=== PATIENT | female | born 2000 | race African-American/Black ===

== ENCOUNTER 2019-10-06 06:17 | Emergency (ER) | payer MEDICAID ==
[~2019-10-06] VITALS: Ht 167.6 cm; Wt 63.6 kg
[2019-10-06] MEDS ORDERED: BACITRACIN 15GM TUBE TOP ONE (07:30)
[2019-10-06 07:39] LABS: CLARITY URINE CLOUDY (CLEAR); COLOR URINE DARK YELLOW (YELLOW); KETONES URINE TRACE (NEGATIVE); LEUKOCYTE ESTERASE URINE 1+ (NEGATIVE); NITRITE URINE POSITIVE (NEGATIVE); OCCULT BLOOD URINE 2+ (NEGATIVE); PROTEIN URINE 2+ (NEGATIVE); SPECIFIC GRAVITY URINE 1.035 (1.005-1.030)
[2019-10-06 07:43] LABS: *AMPHETAMINES SCREEN URINE NEGATIVE (NEGATIVE); *BARBITURATES SCREEN URINE NEGATIVE (NEGATIVE); *BENZODIAZEPINES SCREEN URINE NEGATIVE (NEGATIVE); *COCAINE SCREEN URINE NEGATIVE (NEGATIVE); CANNABINOID URINE SCREEN NEGATIVE (NEGATIVE); METHADONE URINE SCREEN NEGATIVE (NEGATIVE); PHENCYCLIDINE URINE SCREEN NEGATIVE (NEGATIVE)
[2019-10-06 07:57] LABS: OPIATES URINE SCREEN NEGATIVE (NEGATIVE)
[2019-10-06 08:15] VITALS: BP 129/85
== END 2019-10-06 08:26 | disposition home or self-care (01) ==
LOC: ER 06:17
DX: S00.81XA Abrasion of other part of head, initial encounter (principal); S10.91XA Abrasion of unspecified part of neck, initial encounter; Y07.03 Male partner, perpetrator of maltreatment and neglect; Y04.2XXA Assault by strike against or bumped into by another person, initial encounter; Y93.89 Activity, other specified; Y92.89 Other specified places as the place of occurrence of the external cause; N39.0 Urinary tract infection, site not specified; R03.0 Elevated blood-pressure reading, without diagnosis of hypertension
CPT/HCPCS: 80305; 81003; 81025; 87077; 87186; 99283

== ENCOUNTER 2021-11-05 12:34 | Inpatient (IN) | payer MEDICAID ==
[~2021-11-05] VITALS: Ht 157.5 cm; Wt 91.2 kg
[2021-11-05] MEDS ORDERED: LIDOCAINE HCL 1% 20ML VIAL (Pyxis) INJ INFIL SCH (14:15)
[2021-11-05] MEDS ORDERED: METHYLERGONOVINE MALEATE 0.2 MG/ML IM PRN (14:15)
[2021-11-05] MEDS ORDERED: NALOXONE HCL 0.4 MG/ML 1ML VIAL IM PRN (14:15)
[2021-11-05] MEDS ORDERED: OXYTOCIN 30 UNITS/500ML NS PMX 500 ML IV SCH (14:15)
[2021-11-05] MEDS: MAGNESIUM 20 G PREMIX (L & D) 500 ML IV SCH ×2 (14:40→23:33)
[2021-11-05] MEDS: LACTATED RINGERS 1,000 ML IV SCH ×2 (14:45→21:37)
[2021-11-05 14:47] LABS: CLARITY URINE CLEAR (CLEAR); COLOR URINE YELLOW (YELLOW); KETONES URINE NEGATIVE (NEGATIVE); LEUKOCYTE ESTERASE URINE TRACE (NEGATIVE); NITRITE URINE NEGATIVE (NEGATIVE); OCCULT BLOOD URINE NEGATIVE (NEGATIVE); PROTEIN URINE 2+ (NEGATIVE); SPECIFIC GRAVITY URINE 1.019 (1.005-1.030)
[2021-11-05 14:47] LABS: BASOPHILS % 0.4 % (0.0-2.0); EOSINOPHILS % 1.1 % (0.0-5.0); HEMATOCRIT. 31.8 % (36.0-48.0); HEMOGLOBIN. 9.9 g/dL (12.0-16.0); LYMPHOCYTES % 22.8 % (20.0-50.0); MEAN CORPUSCULAR HEMOGLOBIN 23.9 pg (28.0-32.0); MEAN CORPUSCULAR VOLUME 76.7 fL (81.0-99.0); MONOCYTES % 12.7 % (2.0-8.0); PLATELET 327 x1000/uL (130-400); RED BLOOD CELL COUNT 4.15 mill/uL (4.2-5.4); RED CELL DISTRIBUTION WIDTH 21.4 % (11.6-14.6)
[2021-11-05 14:57] LABS: CHLORIDE 103 mEq/L (98-107)
[2021-11-05] MEDS ORDERED: PENICILLIN G POTASSIUM 5 MMU in DEXT 5% WATER 100 ML IV NR (15:00)
[2021-11-05 15:20] LABS: *AMPHETAMINES SCREEN URINE NEGATIVE (NEGATIVE); *BARBITURATES SCREEN URINE NEGATIVE (NEGATIVE); *BENZODIAZEPINES SCREEN URINE NEGATIVE (NEGATIVE); *COCAINE SCREEN URINE NEGATIVE (NEGATIVE); CANNABINOID URINE SCREEN NEGATIVE (NEGATIVE); METHADONE URINE SCREEN NEGATIVE (NEGATIVE); OPIATES URINE SCREEN NEGATIVE (NEGATIVE); PHENCYCLIDINE URINE SCREEN NEGATIVE (NEGATIVE)
[2021-11-05 15:23] LABS: HEPATITIS B SURFACE ANTIGEN NEGATIVE
[2021-11-05] MEDS: BUTORPHANOL TARTRATE 2 MG/ML VIAL IV PRN ×2 (18:22→23:14)
[2021-11-05] MEDS: PENICILLIN G POTASSIUM 2.5 MMU in DEXTROSE 5% WATER 50 ML IV SCH ×2 (18:58→23:05)
[2021-11-05 19:02] LABS: INR 0.9; PARTIAL THROMBOPLASTIN TIME 25.4 sec (23.4-31.0); PROTHROMBIN TIME 9.6 sec (9.6-11.0)
[2021-11-06] MEDS: PENICILLIN G POTASSIUM 2.5 MMU in DEXTROSE 5% WATER 50 ML IV SCH ×5 (03:08→20:00)
[2021-11-06] MEDS: BUTORPHANOL TARTRATE 2 MG/ML VIAL IV PRN (03:22)
[2021-11-06] MEDS ORDERED: ROPIVACAINE HCL/PF EPIDURAL 200 ML EPI NR (11:30)
[2021-11-06] MEDS ORDERED: ROPIVACAINE HCL/PF EPIDURAL 200 ML EPI ONE (11:53)
[2021-11-06] MEDS: MAGNESIUM 20 G PREMIX (L & D) 500 ML IV SCH (12:09)
[2021-11-06] MEDS: LACTATED RINGERS 1,000 ML IV SCH (14:52)
[2021-11-07] MEDS ORDERED: PENICILLIN G POTASSIUM 2.5 MMU in DEXTROSE 5% WATER 50 ML IV SCH ×2
[2021-11-07] MEDS ORDERED: CEFAZOLIN SODIUM 1000MG/VIAL ONE (01:47)
[2021-11-07] MEDS ORDERED: ONDANSETRON HCL 4MG/2ML INJ ONE (01:47)
[2021-11-07] MEDS ORDERED: OXYTOCIN 10 UNITS/ML 1ML ONE (01:47)
[2021-11-07] MEDS ORDERED: DEXAMETHASONE 4MG/ML 1ML VIAL ONE (01:47)
[2021-11-07] MEDS ORDERED: KETOROLAC 60MG/2ML VIAL IM ONE (01:48)
[2021-11-07] MEDS ORDERED: MORPHINE SULFATE/PF 1MG/ML 10ML AMP ONE (01:48)
[2021-11-07] MEDS ORDERED: STERILE WATER FOR INJECTION 10ML VIAL ONE (01:49)
[2021-11-07] MEDS ORDERED: PHENYLEPHRINE HCL 10 MG/ML 1ML (IV VIAL) IV ONE (01:50)
[2021-11-07] MEDS ORDERED: EPHEDRINE SULFATE 50MG/ML VIAL ONE (01:50)
[2021-11-07] MEDS ORDERED: LIDOCAINE HCL 2%/EPINEPHRINE 1:100,000 20 ML VIAL INFIL ONE (01:51)
[2021-11-07] MEDS ORDERED: SODIUM BICARBONATE 4% (2.4MEQ) 5ML VIAL IV ONE (01:52)
[2021-11-07] MEDS ORDERED: CITRIC ACID/SODIUM CITRATE SOLN 30ML UDC PO NR (02:45)
[2021-11-07] MEDS ORDERED: NALOXONE HCL 0.4 MG/ML 1ML VIAL IV PRN (03:30)
[2021-11-07] MEDS ORDERED: KETOROLAC 30MG/ML VIAL IV SCH (03:30)
[2021-11-07] MEDS ORDERED: BISACODYL 10MG SUPP PR PRN (05:30)
[2021-11-07] MEDS ORDERED: IBUPROFEN 400MG TABLET PO PRN (05:30)
[2021-11-07] MEDS ORDERED: HEMORRHOIDAL SUPP PR PRN (05:30)
[2021-11-07] MEDS ORDERED: DIPHENHYDRAMINE 25MG CAPSULE PO PRN (05:30)
[2021-11-07] MEDS ORDERED: ONDANSETRON HCL 4MG/2ML INJ IV PRN (05:30)
[2021-11-07] MEDS ORDERED: MAGNESIUM 20 G PREMIX (L & D) 500 ML IV SCH ×2 (05:30→06:30)
[2021-11-07] MEDS ORDERED: ACETAMINOPHEN WITH CODEINE 300/30MG TABLET PO PRN (05:30)
[2021-11-07] MEDS ORDERED: OXYTOCIN 30 UNITS/500ML NS PMX 500 ML IV SCH (05:30)
[2021-11-07] MEDS ORDERED: RHO(D) IMMUNE GLOBULIN 300 MCG/SYR IM PRN (05:30)
[2021-11-07] MEDS ORDERED: LANOLIN OINT 7GM TUBE TOP PRN (05:30)
[2021-11-07 06:30] VITALS: BP 105/65
[2021-11-07 07:00] VITALS: BP 117/81
[2021-11-07] MEDS: MAGNESIUM/ALUMINUM HYDROXIDE/SIMETHICONE 30ML UDC PO SCH ×4 (07:30→20:56)
[2021-11-07 08:00] VITALS: BP 109/63
[2021-11-07] MEDS: SIMETHICONE 80MG TABLET CHEW PO SCH ×4 (08:00→20:56)
[2021-11-07] MEDS: PRENATAL VIT/FE FUMARATE/FA TABLET PO SCH (09:00)
[2021-11-07 12:00] VITALS: BP 98/51
[2021-11-07] MEDS: KETOROLAC 30MG/ML VIAL IM SCH (18:02)
[2021-11-07 18:55] VITALS: BP 104/41
[2021-11-07] MEDS: DOCUSATE SODIUM 100MG CAPSULE PO SCH (20:56)
[2021-11-07 22:28] VITALS: BP 105/50
[2021-11-08] MEDS: KETOROLAC 30MG/ML VIAL IM SCH (00:26)
[2021-11-08 06:34] VITALS: BP 110/69
[2021-11-08 08:00] VITALS: BP 122/74
[2021-11-08] MEDS: MAGNESIUM/ALUMINUM HYDROXIDE/SIMETHICONE 30ML UDC PO SCH ×4 (09:02→23:40)
[2021-11-08] MEDS: PRENATAL VIT/FE FUMARATE/FA TABLET PO SCH (09:03)
[2021-11-08] MEDS: SIMETHICONE 80MG TABLET CHEW PO SCH ×4 (09:03→23:41)
[2021-11-08] MEDS: IBUPROFEN 800MG TABLET PO PRN ×3 (09:03→22:50)
[2021-11-08] MEDS: FERROUS SULFATE 325MG TABLET PO SCH ×3 (09:03→17:08)
[2021-11-08 09:39] LABS: BASOPHILS % 0.1 % (0.0-2.0); EOSINOPHILS % 0.6 % (0.0-5.0); LYMPHOCYTES % 16.9 % (20.0-50.0); MEAN CORPUSCULAR HEMOGLOBIN 24.8 pg (28.0-32.0); MEAN PLATELET VOLUME 8.1 fl (7.4-10.4); MONOCYTES % 7.6 % (2.0-8.0); NEUTROPHILS % 74.8 % (40.0-76.0); PLATELET 187 x1000/uL (130-400); RED BLOOD CELL COUNT 1.98 mill/uL (4.2-5.4); RED CELL DISTRIBUTION WIDTH 22.7 % (11.6-14.6)
[2021-11-08 09:49] LABS: HEMATOCRIT. 15.4 % (36.0-48.0); HEMOGLOBIN. 4.9 g/dL (12.0-16.0)
[2021-11-08 10:25] LABS: PLATELET ESTIMATE NORMAL
[2021-11-08 16:00] VITALS: BP 134/81
[2021-11-08 18:19] LABS: BASOPHILS % 0.4 % (0.0-2.0); EOSINOPHILS % 0.6 % (0.0-5.0); LYMPHOCYTES % 17.8 % (20.0-50.0); MEAN CORPUSCULAR HEMOGLOBIN 24.8 pg (28.0-32.0); MEAN CORPUSCULAR VOLUME 77.7 fL (81.0-99.0); MEAN PLATELET VOLUME 8.6 fl (7.4-10.4); MONOCYTES % 8.5 % (2.0-8.0); NEUTROPHILS % 72.7 % (40.0-76.0); PLATELET 209 x1000/uL (130-400); RED BLOOD CELL COUNT 2.05 mill/uL (4.2-5.4)
[2021-11-08 18:38] LABS: HEMOGLOBIN. 5.1 g/dL (12.0-16.0)
[2021-11-08 20:06] VITALS: BP 123/73
[2021-11-08] MEDS: DOCUSATE SODIUM 100MG CAPSULE PO SCH (23:40)
[2021-11-09 00:14] VITALS: BP 112/68
[2021-11-09 04:19] VITALS: BP 145/83
[2021-11-09] MEDS: IBUPROFEN 800MG TABLET PO PRN ×3 (05:02→20:10)
[2021-11-09 08:00] VITALS: BP 129/86
[2021-11-09] MEDS: SIMETHICONE 80MG TABLET CHEW PO SCH ×4 (08:32→20:10)
[2021-11-09] MEDS: FERROUS SULFATE 325MG TABLET PO SCH ×3 (08:32→18:01)
[2021-11-09] MEDS: PRENATAL VIT/FE FUMARATE/FA TABLET PO SCH (08:32)
[2021-11-09] MEDS: MAGNESIUM/ALUMINUM HYDROXIDE/SIMETHICONE 30ML UDC PO SCH ×4 (08:32→20:10)
[2021-11-09 15:13] VITALS: BP 122/77
[2021-11-09 20:00] VITALS: BP 135/86
[2021-11-09] MEDS: DOCUSATE SODIUM 100MG CAPSULE PO SCH (20:10)
[2021-11-10] VITALS: BP 150/92
[2021-11-10] MEDS: IBUPROFEN 800MG TABLET PO PRN (03:13)
[2021-11-10 04:07] VITALS: BP 134/81
[2021-11-10] MEDS ORDERED: IBUP-2030 PO (06:45)
[2021-11-10] MEDS ORDERED: PREN1TAB26 MT (06:45)
[2021-11-10] MEDS ORDERED: FERR-63 PO (06:45)
[2021-11-10] MEDS: MAGNESIUM/ALUMINUM HYDROXIDE/SIMETHICONE 30ML UDC PO SCH (07:30)
[2021-11-10] MEDS: SIMETHICONE 80MG TABLET CHEW PO SCH (08:00)
[2021-11-10 08:05] VITALS: BP 142/86
[2021-11-10] MEDS: FERROUS SULFATE 325MG TABLET PO SCH (08:31)
[2021-11-10] MEDS: PRENATAL VIT/FE FUMARATE/FA TABLET PO SCH (08:31)
== END 2021-11-10 12:50 | disposition home or self-care (01) | DRG 540 ==
LOC: 8 EST LDRP 12:34 → OBSVTOIN 12:34 → 8EST 11-07 06:11
PROVIDERS: ADMIT Obstetrics & Gynecology; ATTEND Obstetrics & Gynecology
PROC: 0U7C7ZZ Dilation of Cervix, Via Natural or Artificial Opening (ICD-10-PCS; 2021-11-05)
PROC: 10D00Z1 Extraction of Products of Conception, Low, Open Approach (ICD-10-PCS; principal; 2021-11-08)
DX: O62.2 Other uterine inertia (principal); F20.9 Schizophrenia, unspecified; O13.4 Gestational [pregnancy-induced] hypertension without significant proteinuria, complicating childbirth; O99.344 Other mental disorders complicating childbirth; F32.A Depression, unspecified; Z20.822 Contact with and (suspected) exposure to COVID-19; O99.02 Anemia complicating childbirth; O61.1 Failed instrumental induction of labor; Z3A.39 39 weeks gestation of pregnancy; Z37.0 Single live birth
CPT/HCPCS: 36415; 76805; 76818; 80053; 80305; 81003; 82962; 83735; 84550; 85025; 85384; 86592; 86703; 86762; 86850; 86900; 87340; 87426; 88307; 99281; A4216; G0378; J0595; J0690; J1100; J1885; J2274; J2370; J2405; J2540; J2795; J3475; J3490; J7060; J7120; A4315; J2590

== ENCOUNTER 2024-11-05 09:19 | Emergency (ER) | payer MEDICAID ==
[~2024-11-05] VITALS: Ht 154.9 cm; Wt 95.0 kg
[~2024-11-05 09:19] MED LIST: FERR-63 PO; IBUP-2030 PO; PREN1TAB26 MT
[2024-11-05 09:30] VITALS: O2SAT 96
[2024-11-05] MEDS: ACETAMINOPHEN 325MG TABLET PO ONE (10:19)
[2024-11-05 10:20] VITALS: BP 130/83; PULSE 79; RESP 16; TEMP 36.9; O2SAT 98
[2024-11-05] MEDS ORDERED: NAPR220C61 MT (10:21)
== END 2024-11-05 10:51 | disposition home or self-care (01) ==
LOC: ER 09:19
DX: S82.832A Other fracture of upper and lower end of left fibula, initial encounter for closed fracture (principal); G89.11 Acute pain due to trauma; F32.A Depression, unspecified; Z79.899 Other long term (current) drug therapy; X58.XXXA Exposure to other specified factors, initial encounter; Y93.02 Activity, running; Y92.89 Other specified places as the place of occurrence of the external cause; Y99.8 Other external cause status
CPT/HCPCS: 99284; 29515; 73610; 73630; A6449